=== PATIENT | female | born 1950 | race Caucasian/White ===

== ENCOUNTER 2019-02-24 13:09 | Outpatient (CLI) | payer MEDICARE, BC ==
[~2019-02-24] VITALS: Ht 154.9 cm; Wt 39.8 kg
[2019-02-24 13:44] VITALS: BP 123/55; PULSE 69; TEMP 98
== END 2019-02-24 13:45 | disposition home or self-care (01) ==
LOC: EUO 13:09
DX: M81.0 Age-related osteoporosis without current pathological fracture (principal)
CPT/HCPCS: J0897

== ENCOUNTER → 2019-05-04 | Outpatient (CLI) | payer MEDICARE, BC | LOC: MC.RAD 09:27 | DX: Z12.31 Encounter for screening mammogram for malignant neoplasm of breast (principal) ==

== ENCOUNTER 2019-08-29 15:48 | Outpatient (CLI) | payer MEDICARE, BC ==
[~2019-08-29] VITALS: Ht 154.9 cm; Wt 40.3 kg
[2019-08-29 16:16] VITALS: BP 109/68; PULSE 73; TEMP 98.4
[2019-08-29] MEDS ORDERED: XANAX 1MG1 MG PO (16:20)
[2019-08-29] MEDS ORDERED: VALTREX 50500 MG/TAB PO (16:20)
== END 2019-08-29 16:21 | disposition home or self-care (01) ==
LOC: EUO 15:48
DX: M81.0 Age-related osteoporosis without current pathological fracture (principal)
CPT/HCPCS: J0897

== ENCOUNTER 2020-03-22 13:07 | Outpatient (CLI) | payer MEDICARE, BC ==
[~2020-03-22] VITALS: Ht 154.9 cm; Wt 40.8 kg
[~2020-03-22 13:07] MED LIST: VALTREX 50500 MG/TAB PO; XANAX 1MG1 MG PO
[2020-03-22 13:43] VITALS: BP 118/56; PULSE 62; TEMP 98.4
== END 2020-03-22 14:28 | disposition home or self-care (01) ==
LOC: EUO 13:07
DX: M81.0 Age-related osteoporosis without current pathological fracture (principal)
CPT/HCPCS: J0897

== ENCOUNTER 2020-09-23 15:55 | Outpatient (CLI) | payer MEDICARE, BC ==
[~2020-09-23] VITALS: Ht 154.9 cm; Wt 40.9 kg
[2020-09-23] MEDS ORDERED: MELATONIN5 M1 SL (16:40)
[2020-09-23 16:42] VITALS: BP 118/72; PULSE 65; TEMP 98.3
== END 2020-09-24 17:36 | disposition home or self-care (01) ==
LOC: EUO 15:55
DX: M81.0 Age-related osteoporosis without current pathological fracture (principal); Z79.899 Other long term (current) drug therapy
CPT/HCPCS: J0897

== ENCOUNTER 2021-05-05 15:26 | Outpatient (CLI) | payer MEDICARE, BC ==
[~2021-05-05] VITALS: Ht 154.9 cm; Wt 38.0 kg
[~2021-05-05 15:26] MED LIST changes: +MELATONIN5 M1 SL
[2021-05-05 15:51] VITALS: BP 130/70; PULSE 77; TEMP 98.7
== END 2021-05-05 16:14 | disposition home or self-care (01) ==
LOC: EUO 15:26
DX: M81.0 Age-related osteoporosis without current pathological fracture (principal)
CPT/HCPCS: J0897

== ENCOUNTER 2021-11-04 14:43 | Outpatient (CLI) | payer MEDICARE, BC ==
[~2021-11-04] VITALS: Ht 154.9 cm; Wt 39.5 kg
[2021-11-04 15:04] VITALS: BP 124/76; PULSE 67; TEMP 98.5
== END 2021-11-04 17:32 ==
LOC: EUO 14:43
DX: M81.0 Age-related osteoporosis without current pathological fracture (principal)
CPT/HCPCS: J0897

== ENCOUNTER 2022-05-07 14:51 | Outpatient (CLI) | payer MEDICARE, BC ==
[2022-05-07 15:11] VITALS: BP 131/72; PULSE 76; TEMP 98.3
== END 2022-05-07 16:24 ==
LOC: EUO 14:51
DX: M81.0 Age-related osteoporosis without current pathological fracture (principal)
CPT/HCPCS: J0897

== ENCOUNTER → 2022-10-30 | Outpatient (CLI) | payer MEDICARE, BC | LOC: COL.RAD 13:43 | DX: Z12.2 Encounter for screening for malignant neoplasm of respiratory organs (principal); J43.9 Emphysema, unspecified; F17.200 Nicotine dependence, unspecified, uncomplicated ==

== ENCOUNTER 2022-11-11 15:40 | Outpatient (CLI) | payer MEDICARE, BC ==
[~2022-11-11] VITALS: Ht 154.9 cm; Wt 42.0 kg
[2022-11-11 15:47] VITALS: BP 153/64; PULSE 69; TEMP 98.1
--- NOTE | 2022-11-11 16:34 | NUR ---
Pt ambulated independently to [facility] for prolia injection. she tolerated injection well and her vs remained within normal limits for injection. she was free from concerns and complaints at time of discharge.
== END 2022-11-11 16:25 | disposition home or self-care (01) ==
LOC: EUO 15:40
DX: M81.0 Age-related osteoporosis without current pathological fracture (principal)
CPT/HCPCS: J0897

== ENCOUNTER → 2024-06-02 | Outpatient (CLI) | payer MEDICARE, BC ==
[~2024-06-02] MED LIST changes: +NATURAL MAGNES200 MG PO; +PROLIA60 MG/ML SQ
== END ==
LOC: COL.RAD 07:41
DX: R91.8 Other nonspecific abnormal finding of lung field (principal); J43.9 Emphysema, unspecified